=== PATIENT | female | born 1940 | race Two or more races ===

== ENCOUNTER → 2018-01-16 | Outpatient (CLI) | payer OTHER ==
[~2018-01-16] MED LIST: ORPH100T PO; ULTRACET PO
== END | disposition home or self-care (01) ==
LOC: NUCLEAR 08:30
DX: C48.1 Malignant neoplasm of specified parts of peritoneum (principal)
CPT/HCPCS: 78816; A9552

== ENCOUNTER 2019-05-19 09:24 | Outpatient (CLI) | payer OTHER | END 2019-05-19 09:29 | disposition home or self-care (01) | LOC: NUCLEAR 09:24 | DX: C56.1 Malignant neoplasm of right ovary (principal); C56.2 Malignant neoplasm of left ovary | CPT/HCPCS: 78815; A9552 ==

== ENCOUNTER 2021-02-27 11:24 | Emergency (ER) | payer OTHER ==
[~2021-02-27] VITALS: Ht 152.4 cm; Wt 68.0 kg
[2021-02-27] MEDS ORDERED: PLAVIX75 MG PO (12:20)
[2021-02-27] MEDS ORDERED: ATACAND32 MG PO (12:20)
[2021-02-27] MEDS ORDERED: ZOLOFT25 MG PO (12:21)
[2021-02-27] MEDS ORDERED: FAMOTIDINE20 MG PO (12:21)
[2021-02-27] MEDS ORDERED: LOTREL 5-10 MG1 CAP PO (12:21)
[2021-02-27] MEDS ORDERED: ENDOCET 5-3251 EACH PO (12:22)
[2021-02-27] MEDS ORDERED: CLONAZEPAM0.5 MG PO (12:22)
[2021-02-27] MEDS ORDERED: REMERON15 M1 PO (12:22)
[2021-02-27] MEDS ORDERED: ARICEPT10 MG PO (12:22)
[2021-02-27] MEDS ORDERED: HORIZANT300 MG PO (12:23)
[2021-02-27] MEDS ORDERED: BUTALB-ASPIRIN1 EACH PO (12:23)
[2021-02-27] MEDS ORDERED: ULTRAM50 MG PO (12:23)
[2021-02-27] MEDS ORDERED: LEVALBUTER1.25 MG/0. IH (17:21)
[2021-02-27] MEDS ORDERED: BUDESONIDE0.5 MG/2 M IH (17:21)
== END 2021-02-27 18:03 ==
LOC: ER 11:24
DX: U07.1 COVID-19 (principal); J12.82 Pneumonia due to coronavirus disease 2019; J20.9 Acute bronchitis, unspecified

== ENCOUNTER 2021-02-28 15:00 | Outpatient (CLI) | payer OTHER ==
[~2021-02-28 15:00] MED LIST changes: +ARICEPT10 MG PO; +ATACAND32 MG PO; +BUDESONIDE0.5 MG/2 M IH; +BUTALB-ASPIRIN1 EACH PO; +CLONAZEPAM0.5 MG PO; +ENDOCET 5-3251 EACH PO; +FAMOTIDINE20 MG PO; +HORIZANT300 MG PO; +LEVALBUTER1.25 MG/0. IH; +LOTREL 5-10 MG1 CAP PO; +PLAVIX75 MG PO; +REMERON15 M1 PO; +ULTRAM50 MG PO; +ZOLOFT25 MG PO
== END 2021-02-28 16:00 | disposition home or self-care (01) ==
LOC: ASH CLINIC 15:00
PROVIDERS: ATTEND General Practice
DX: Z23 Encounter for immunization (principal); U07.1 COVID-19

== ENCOUNTER 2021-05-26 09:39 | Emergency (ER) | payer OTHER ==
[~2021-05-26] VITALS: Ht 160 cm; Wt 66.2 kg
[2021-05-26] MEDS ORDERED: SIMVASTATIN40 MG PO (09:49)
[2021-05-26] MEDS ORDERED: CANDESARTAN CIL32 MG PO (09:49)
[2021-05-26] MEDS ORDERED: GLIMEPIRIDE4 M1 PO (09:50)
[2021-05-26] MEDS ORDERED: ZOLOFT25 MG PO (09:51)
[2021-05-26] MEDS ORDERED: LEVOFLOXACIN500 MG PO (15:56)
[2021-05-26] MEDS ORDERED: CELEBREX100 MG PO (15:58)
== END 2021-05-26 16:16 | disposition home or self-care (01) ==
LOC: ER 09:39
DX: N39.0 Urinary tract infection, site not specified (principal); R50.9 Fever, unspecified

== ENCOUNTER 2022-01-31 16:23 | Emergency (ER) | payer OTHER ==
[~2022-01-31] VITALS: Ht 157.5 cm; Wt 59.0 kg
[~2022-01-31 16:23] MED LIST changes: +CANDESARTAN CIL32 MG PO; +CELEBREX100 MG PO; +GLIMEPIRIDE4 M1 PO; +LEVOFLOXACIN500 MG PO; +SIMVASTATIN40 MG PO
== END 2022-02-02 08:08 | disposition home or self-care (01) ==
LOC: ER 16:23
DX: U07.1 COVID-19 (principal)

== ENCOUNTER 2022-09-24 13:29 | Emergency (ER) | payer OTHER ==
[~2022-09-24] VITALS: Ht 157.5 cm; Wt 61.2 kg
[2022-09-24] MEDS ORDERED: COZAAR50 MG PO (14:19)
[2022-09-24] MEDS ORDERED: LIPITOR80 MG PO (14:20)
[2022-09-24] MEDS ORDERED: ARICEPT10 MG PO (14:21)
[2022-09-24] MEDS ORDERED: PROTONIX20 MG PO (14:22)
== END 2022-09-24 20:20 | disposition home or self-care (01) ==
LOC: ER 13:29
DX: R42 Dizziness and giddiness (principal); R11.10 Vomiting, unspecified; E86.0 Dehydration; I12.9 Hypertensive chronic kidney disease with stage 1 through stage 4 chronic kidney disease, or unspecified chronic kidney disease; N18.9 Chronic kidney disease, unspecified; Z85.43 Personal history of malignant neoplasm of ovary; Z88.6 Allergy status to analgesic agent; Z88.2 Allergy status to sulfonamides; Z20.822 Contact with and (suspected) exposure to COVID-19